=== PATIENT | female | born 1935 | race Caucasian/White ===

== ENCOUNTER 2024-08-04 15:10 | Inpatient (IN) | payer MEDICARE, SELFPAY ==
--- NOTE | 2024-08-04 15:23 | HP.PCM_ITS ---
HPI - General General Date of Admission: 08/04/24 Date of Service: 08/04/24 Chief Complaint: Here for rehabilitation. HPI Narrative STEPHANY DANG, is a 88 Female who presents with followin07/28/2024 Admit to [facility] with fall, left hip pain, near syncope. Fall, pelvic fracture, near syncope. Fall in bathroom, left hip, left leg pain, unable to bear weight. In ED, near syncope when trying to stand. Gentle IV fluids, check orthostatics for near syncope. PT/OT for pelvic fracture. Lovenox for DVT prophylaxis. 07/30/2023 EP consulted for syncope. Patient adamantly denies syncope. Echo EF 76%, moderate bioprosthetic aortic valve stenosis. Follow bioprosthetic aortic valve stenosis as outpatient. 08/01/2024 No acute events overnight. Ortho recommended no surgery for pelvic fracture. WBAT. PT/OT recommends inpatient rehabilitation. 08/04/2024 Admit to TCU with debility, here for rehabilitation, strengthening, prior to discharge home alone. [facility] Medical History (Updated 08/04/24 @ 15:[address] Ruperto Damon MD) Hyperlipidemia, unspecified Essential (primary) hypertension Type 2 diabetes mellitus with hyperglycemia Bilateral carotid artery stenosis Coronary artery disease Aortic stenosis Osteoarthritis Atrial fibrillation Pelvic fracture Syncope Debility Home Medications ?Medication ?Instructions ?Recorded ?Last Taken ?Type amlodipine 10 mg tablet 10 mg PO DAILY BP 08/04/24 Unknown History aspirin 81 mg capsule 81 mg PO DAILY blood thinner 08/04/24 Unknown History atorvastatin 40 mg tablet 40 mg PO DAILY cholesterol 08/04/24 Unknown History baclofen 5 mg tablet 5 mg PO TID muscle spasms 08/04/24 Unknown History calcium 500 mg (as 1 tab PO DAILY supplement 08/04/24 Unknown History carbonate)-vitamin D3 5 mcg (200 unit) tablet ezetimibe 10 mg tablet 10 mg PO DAILY cholesterol 08/04/24 Unknown History metformin 500 mg tablet 500 mg PO DAILY blood sugar 08/04/24 Unknown History metoprolol tartrate 25 mg tablet 25 mg PO BID BP/pulse 08/04/24 Unknown History oxycodone 5 mg tablet 2.5 mg PO Q4H PRN pain 08/04/24 Unknown History Allergy/AdvReac Type Severity Reaction Status Date / Time No Known Allergies Allergy Verified 08/04/24 16:09 Family History (Updated 08/04/24 @ 15:[address] Ruperto Damon MD) Father CAD (coronary artery disease) Mother CAD (coronary artery disease) Surgical History (Updated 08/04/24 @ 15:[address] Ruperto Damon MD) History of colon surgery History of right-sided carotid endarterectomy History of left-sided carotid endarterectomy History of aortic valve replacement with bioprosthetic valve History of coronary artery bypass graft x 2 Social History (Updated 08/04/24 @ 15:[address] Ruperto Damon MD) household members: none Smoking Status: Never smoker alcohol intake: never substance use type: does not use ROS Constitutional Constitutional: Reports weakness; Denies chills, fever(s) or weight gain ENT HEENT: Denies headache(s), nasal congestion or nasal discharge Cardiovascular Cardiovascular: Denies chest pain or palpitations Respiratory/Chest Respiratory/Chest: Denies cough, excessive phlegm production or shortness of breath with exertion Gastrointestinal Gastrointestinal: Denies abdominal pain, nausea or vomiting Genitourinary Genitourinary: Denies dysuria Musculoskeletal Musculoskeletal: Denies joint pain or joint swelling Integumentary Integumentary: Denies rash or wounds Neurologic Neurologic: Denies focal weakness, numbness or tingling Psychiatric Psychiatric: Denies anxiety, auditory hallucinations, depression, homicidal ideation or suicidal ideation Physical Exam Const alert General Appearance: cooperative HEENT normocephalic Eyes PERRL and EOMs intact bilaterally Neck supple, no JVD and no carotid bruits Resp normal respiratory effort, normal air movement and clear to auscultation bilaterally Cardio regular rate and regular rhythm GI normal to inspection, nondistended, normoactive bowel sounds, non-tender and non-distended Extremity normal capillary refill General Extremity: Negative for edema Skin no rashes or lesions noted General Skin Exam: no breakdown Psych affect normal Appearance: appropriate Assessment & Plan Assessment/Plan (1) Debility: (2) Syncope: (3) Pelvic fracture: (4) Atrial fibrillation: (5) Osteoarthritis: (6) Aortic stenosis: (7) Coronary artery disease: (8) Bilateral carotid artery stenosis: (9) Type 2 diabetes mellitus with hyperglycemia: (10) Essential (primary) hypertension: (11) Hyperlipidemia, unspecified: PLAN: Plan 88 year old female with below past medical history hospitalized for fall 2/2 syncope, complicated by pelvis fracture, admitted to TCU with debility, here for rehabilitation, strengthening, prior to discharge home alone. * Debility - PT/OT. * Pain - Tylenol 1000mg q8, Tramadol 50mg q6 prn pain (1-5), Oxycodone 2.5mg q4 prn pain (6-10). * Bowel - senna/colace 1 tablet bid, Magnesium citrate 300mL daily prn. * Adult immunization - Administer pneumonia vaccine, covid vaccine, flu vaccine as appropriate. * DVT prophylaxis - Lovenox 30mg sc daily. * Hypertension - Metoprolol 25mg bid, Amlodipine 10mg daily. * Coronary artery disease - Metoprolol 25mg bid, Aspirin 81mg daily. * Hyperlipidemia - Atorvastatin 40mg qhs, Zetia 10mg daily. * Muscle spasm - Baclofen 5mg po tid. * Calcium deficiency - Calcium D 1 tablet daily. * Diabetes Mellitus II - Metformin 500mg daily. * Atrial fibrillation - Metoprolol 25mg bid, Aspirin 81mg daily, not on anticoagulation, resident sees cardiology in [place].
[2024-08-04 15:24] VITALS: BP 159/70; PULSE 79; RESP 16; RESP 18; TEMP 36.2; O2SAT 94; BMI 22.2
[2024-08-04] MEDS: Acetaminophen 500 MG Tablet 1000 MG PO ×2 (17:16→20:02)
[2024-08-04] MEDS: Senna/Docusate Sodium 1 Tablet PO ×2 (17:16→20:04)
[2024-08-04] MEDS: Baclofen 10 MG Tablet 5 MG PO (20:02)
[2024-08-04 20:03] VITALS: BP 110/49; PULSE 57
[2024-08-04] MEDS: Metoprolol Tartrate 25 MG Tablet PO (20:03)
[2024-08-04] MEDS: Atorvastatin Calcium 40 MG Tablet PO (20:04)
--- NOTE | 2024-08-05 01:29 | NURSING ---
While doing rounds, noted patient had gown pulled up. REFINERY OPERATOR CRUDE UNIT entered room with me, and it was noted that patient had pulled brief off, had a BM and wiped it on herself. Patient washed, night gown and linen changed. Will continue to monitor.
[2024-08-05] MEDS: Baclofen 10 MG Tablet 5 MG PO ×2 (05:47→20:51)
[2024-08-05] MEDS: Acetaminophen 500 MG Tablet 1000 MG PO ×2 (05:47→20:51)
[2024-08-05 06:20] LABS: Bedside Glucose 122 mg/dL (74-106)
[2024-08-05 07:30] LABS: Absolute Lymphocyte Count 1.09 X10^3/uL (0.83-4.51); Basophil# 0.03 X10^3/uL; Basophil% 0.5 % (0-1); Eosinophil# 0.18 X10^3/uL; Hematocrit 33.9 % (37-47); Hemoglobin 10.9 g/dL (12.0-15.0); Lymphocyte # 1.09 X10^3/ul (0.83-4.51); Lymphocyte % 18.4 % (19-41); Mean Corp Hgb Conc 32.2 g/dL (32-36); Mean Corpuscular Hgb 30.4 pg (27.0-32.0); Mean Corpuscular Volume 94.7 fL (81-99); Mean Platelet Vol. 11.3 fl (6.2-12.0); Monocyte% 10.1 % (0-10); NRBC Flagged by Analyzer 0 % (0-5); Neutrophil # 4.02 X10^3/uL (2.7-7.7); Neutrophil % 67.7 % (47-70); Platelet Count 173 K/mm3 (150-450); RBC Distribution Width CV 13.9 % (11.6-14.6); RBC Distribution Width SD 47.9 fl (35.1-43.9); Red Blood Count 3.58 M/mm3 (4.2-5.4); White Blood Count 5.9 K/mm3 (4.4-11.0)
[2024-08-05 07:48] LABS: Anion Gap 6 (5-15); BUN 26 mg/dL (7-18); Chloride 106 mmol/L (98-107); Creatinine, Serum 0.93 mg/dL (0.55-1.02); EST Glomerular Filtration Rate 60 mL/min (>60); Est Glom Filt Rate - Afr Amer 73 mL/min (>60); Estimated Creatinine Clearance 30.03 ml/min; Glucose 135 mg/dL (74-106); Potassium 4.1 mmol/L (3.5-5.1); Sodium Level 138 mmol/L (136-145)
[2024-08-05 08:25] VITALS: BP 134/65; PULSE 63; RESP 16; TEMP 36.4; O2SAT 97
[2024-08-05 09:07] VITALS: PULSE 62
[2024-08-05] MEDS: Senna/Docusate Sodium 1 Tablet PO ×2 (09:07→20:51)
[2024-08-05] MEDS: Metoprolol Tartrate 25 MG Tablet PO ×2 (09:07→20:52)
[2024-08-05] MEDS: metFORMIN HCl 500 MG Tablet PO (09:08)
[2024-08-05] MEDS: Aspirin 81 MG TAB.CHEW PO (09:08)
[2024-08-05] MEDS: Calcium Carb/Vitamin D 1 TABLET Tablet PO (09:08)
[2024-08-05] MEDS: amLODIPine 10 MG Tablet PO (09:08)
[2024-08-05] MEDS: Ezetimibe 10 MG Tablet PO (09:09)
[2024-08-05] MEDS: Enoxaparin 30 MG/0.3 ML Syringe SC (10:10)
[2024-08-05] MEDS: Tuberculin,Purif.prot.deriv. 50 TU/ML Vial 0.1 ML ID (10:15)
[2024-08-05] MEDS: Atorvastatin Calcium 40 MG Tablet PO (20:50)
[2024-08-05 20:52] VITALS: BP 122/52; PULSE 68
[2024-08-05 20:55] VITALS: BP 122/52; PULSE 68; O2SAT 95
[2024-08-05 20:56] VITALS: PULSE 86; RESP 16; O2SAT 95
[2024-08-06 05:15] VITALS: RESP 17
[2024-08-06] MEDS: Enoxaparin 30 MG/0.3 ML Syringe SC (05:17)
[2024-08-06] MEDS: Baclofen 10 MG Tablet 5 MG PO (05:17)
[2024-08-06] MEDS: Acetaminophen 500 MG Tablet 1000 MG PO ×3 (05:17→23:13)
[2024-08-06 06:23] LABS: Bedside Glucose 103 mg/dL (74-106)
[2024-08-06 08:26] VITALS: BP 116/66; PULSE 70; RESP 16; TEMP 36.5; O2SAT 96
[2024-08-06] MEDS: metFORMIN HCl 500 MG Tablet PO (08:29)
[2024-08-06] MEDS: Aspirin 81 MG TAB.CHEW PO (08:29)
[2024-08-06 08:30] VITALS: PULSE 70
[2024-08-06] MEDS: Metoprolol Tartrate 25 MG Tablet PO ×2 (08:30→23:12)
[2024-08-06] MEDS: Senna/Docusate Sodium 1 Tablet PO (08:30)
[2024-08-06] MEDS: amLODIPine 10 MG Tablet PO (08:30)
[2024-08-06] MEDS: Calcium Carb/Vitamin D 1 TABLET Tablet PO (08:30)
[2024-08-06] MEDS: Ezetimibe 10 MG Tablet PO (08:31)
[2024-08-06 23:12] VITALS: BP 116/56; PULSE 60
[2024-08-06] MEDS: Atorvastatin Calcium 40 MG Tablet PO (23:13)
[2024-08-06] MEDS: Menthol/Lanolin/Calamine/Znox 113 GM Tube 1 APPLIC TOPICAL (23:17)
[2024-08-06 23:18] VITALS: BP 116/56; PULSE 60
[2024-08-07] MEDS: Acetaminophen 500 MG Tablet 1000 MG PO ×3 (05:47→22:23)
[2024-08-07] MEDS: Enoxaparin 30 MG/0.3 ML Syringe SC (05:47)
[2024-08-07 06:14] LABS: Bedside Glucose 101 mg/dL (74-106)
[2024-08-07 08:28] VITALS: BP 120/63; PULSE 82; RESP 16; TEMP 36.6; O2SAT 96
[2024-08-07] MEDS: amLODIPine 10 MG Tablet PO (08:32)
[2024-08-07] MEDS: Ezetimibe 10 MG Tablet PO (08:32)
[2024-08-07] MEDS: Calcium Carb/Vitamin D 1 TABLET Tablet PO (08:32)
[2024-08-07 08:33] VITALS: BP 120/63; PULSE 82
[2024-08-07] MEDS: Metoprolol Tartrate 25 MG Tablet PO ×2 (08:33→22:23)
[2024-08-07] MEDS: metFORMIN HCl 500 MG Tablet PO (08:33)
[2024-08-07] MEDS: Aspirin 81 MG TAB.CHEW PO (08:33)
[2024-08-07] MEDS: Menthol/Lanolin/Calamine/Znox 113 GM Tube 1 APPLIC TOPICAL ×2 (08:36→22:24)
--- NOTE | 2024-08-07 12:41 | NURSING ---
Rehabilitation Team Lead Note; Activity Asset: Karyn Smith is independent in her choice of daily activities. She has crossword puzzles, deck of cards and sister and friend visits with her. She welcomes visits from the therapy dog when she is available. Staff will encourage social activities, take her room activities and respect her right to say no.
--- NOTE | 2024-08-07 14:11 | PCM.PN.DRR ---
Documented by User: Raquel Maurer 08/07/24 14:28 TCU RX Drug Regimen Review Subjective/Objective Subjective/Objective Subjective: TCU Admission. 88 YOF presented to outside hospital with hip pain after a fall. Hospitalized for fall 2/2 syncope, complicated by pelvis fracture. Admitted to TCU with debility for strengthening and rehabilitation. Objective: Allergies No Known Allergies Allergy (Verified 08/04/24 16:09) Current Medications Generic Name Dose Route Start Last Admin Trade Name Freq PRN Reason Stop Dose Admin Acetaminophen 1,000 mg 08/04/24 16:00 08/07/24 14:02 Acetaminophen 500 Mg Tablet PO 1,000 mg Q8 BRUNO Administration Amlodipine Besylate 10 mg 08/05/24 10:00 08/07/24 08:32 Amlodipine 10 Mg Tablet PO 10 mg DAILY BRUNO Administration Protocol Aspirin 81 mg 08/05/24 08:00 08/07/24 08:33 Aspirin 81 Mg Tab.Chew PO 81 mg DAILYCM BRUNO Administration Atorvastatin Calcium 40 mg 08/04/24 22:00 08/06/24 23:13 Atorvastatin Calcium 40 Mg Tablet PO 40 mg QHS BRUNO Administration Baclofen 5 mg 08/04/24 22:00 08/07/24 14:02 Baclofen 10 Mg Tablet PO Not Given TID [facility] Bisacodyl 10 mg 08/04/24 15:36 Bisacodyl 10 Mg Suppository RC DAILY PRN PRN Constipation COVID-19 Vaccine mRNA LNP-S (MOD) (PF) 50 mcg 08/07/24 17:00 Covid Vac 24-25 (12up)(Moderna)/Pf 50 Mcg/0.5 Ml Syringe IM 08/07/24 17:01 .ONCE ONE Calamine/Phenol 1 applic 08/06/24 22:00 08/07/24 08:36 Menthol/Lanolin/Calamine/Znox 113 Gm Tube TOPICAL 1 applic BID [facility] Administration Protocol Calcium/Vitamin D 1 tablet 08/05/24 08:00 08/07/24 08:32 Calcium Carb/Vitamin D 1 Tablet Tablet PO 1 tablet DAILYCM BRUNO Administration Ezetimibe 10 mg 08/05/24 10:00 08/07/24 08:32 Ezetimibe 10 Mg Tablet PO 10 mg DAILY BRUNO Administration Enoxaparin Sodium 30 mg 08/05/24 06:00 08/07/24 05:47 Enoxaparin 30 Mg/0.3 Ml Syringe SC 30 mg DAILY@0600 [facility] Administration Magnesium Citrate 300 ml 08/04/24 15:47 Magnesium Citrate 300 Ml PO DAILY PRN Constipation Magnesium Hydroxide 30 ml 08/04/24 15:36 Magnesium Hydroxide 30 Ml Udc PO DAILY PRN PRN Constipation Metformin HCl 500 mg 08/05/24 08:00 08/07/24 08:33 Metformin Hcl 500 Mg Tablet PO 500 mg DAILYCM BRUNO Administration Metoprolol Tartrate 25 mg 08/04/24 22:00 08/07/24 08:33 Metoprolol Tartrate 25 Mg Tablet PO 25 mg BID BRUNO Administration Protocol Oxycodone HCl 2.5 mg 08/04/24 15:50 Oxycodone 5 Mg Tablet PO Q4H PRN PRN Pain Score 6-10 or Pre PT/OT Senna/Docusate Sodium 1 tablet 08/04/24 16:00 08/07/24 08:35 Senna/Docusate Sodium 1 Tablet PO Not Given BID [facility] Tramadol HCl 50 mg 08/04/24 15:47 Tramadol 50 Mg Tablet PO Q6H PRN PRN Pain Score 1-5 or Pre PT/OT Tuberculin PPD 0.1 ml 08/12/24 10:00 Tuberculin,Purif.Prot.Deriv. 50 Tu/Ml Vial ID 08/12/24 10:01 X1 ONE Problem List Hyperlipidemia, unspecified (Acute) Essential (primary) hypertension (Acute) Type 2 diabetes mellitus with hyperglycemia (Acute) Bilateral carotid artery stenosis (Acute) Coronary artery disease (Acute) Aortic stenosis (Acute) Osteoarthritis (Acute) Atrial fibrillation (Acute) Pelvic fracture (Acute) Syncope (Acute) Debility (Acute) Vital Signs Temp Pulse Resp BP Pulse Ox O2 Del Method 97.8 F 82 16 120/63 96 Room Air 08/07/24 08:28 08/07/24 08:33 08/07/24 08:28 08/07/24 08:33 08/07/24 08:28 08/07/24 08:28 Oxygen Delivery Method Room Air Weight: 50.009 kg Body Mass Index (BMI) 22.2 Sodium 138 mmol/L (136-145) 08/05/24 07:10 Potassium 4.1 mmol/L (3.5-5.1) 08/05/24 07:10 Chloride 106 mmol/L (98-107) 08/05/24 07:10 Carbon Dioxide 26.0 mmol/L (21.0-32.0) 08/05/24 07:10 Anion Gap 6 (5-15) 08/05/24 07:10 BUN 26 mg/dL (7-18) H 08/05/24 07:10 Creatinine 0.93 mg/dL (0.55-1.02) 08/05/24 07:10 Est GFR (MDRD) Af Amer 73 mL/min (>60) 08/05/24 07:10 Est GFR (MDRD) Non-Af 60 mL/min (>60) 08/05/24 07:10 BUN/Creatinine Ratio 28.0 RATIO (10-20) H 08/05/24 07:10 Glucose 135 mg/dL (74-106) H 08/05/24 07:10 Assessment/Plan: 1. Pain: acetaminophen 1000mg PO Q8, tramadol 50mg PO Q6H PRN pain 1-5 and oxycodone 2.5mg PO Q4H PRN pain 6-10. Resident has not had any PRN doses. Please continue to monitor for PRN usage and pain. 2. Bowel: senna/docusate 1T PO BID, MOM 30mL PO daily PRN constipation, bisacodyl 10mg RC daily PRN constipation and magnesium citrate 300mg PO daily PRN constipation. No PRN doses given. Please continue to monitor for constipation and PRN usage. Last documented bowel movement 08/06/24. 3. DVT prophylaxis: enoxaparin 30mg SC daily. Please continue to monitor for S/S of bleeding/DVT, hemoglobin (10.9g/dL), platelets (last 173,000) and renal function (CrCl 30mL/min). 4. Hypertension/CAD/atrial fibrillation: metoprolol tartrate 25mg PO BID, amlodipine 10mg PO daily, aspirin 81mg PO daily. Please continue to monitor BP (last 120/63), HR (last 82), swelling, S/S of bleeding/stroke and hemoglobin. Per H&P, not on anticoagulation, sees cardiology in [place]. 5. Hyperlipidemia: atorvastatin 40mg PO QHS and ezetimibe 10mg PO daily. Please consider ordering a lipid panel as there is no panel in the chart. Thanks. Please continue to monitor for muscle pain. 6. Diabetes mellitus II: metformin 500mg PO daily. Please consider ordering a hemoglobin A1c as there is no level in the chart. Thanks. Please continue to monitor glucose (last 101mg/dL), renal function, diarrhea and S/S of hypoglycemia. 7. Muscle spasms: baclofen 5mg PO TID. Please continue to monitor for hypotonia, dizziness and drowsiness. 8. Calcium deficiency: calcium/vitamin D 1T PO DAILYCM. Please consider ordering a vitamin D level as there is no level in the chart. Thanks. Please continue to monitor calcium (last 9mg/dL). Assessment/Plan for indications treated with psychotropic medications: None Medical chart and medication regimen reviewed. The following medication irregularities or issues were identified: 1. Atorvastatin 40mg PO QHS and ezetimibe 10mg PO daily. Please consider ordering a lipid panel as there is no panel in the chart. Thanks. 2. Metformin 500mg PO daily. Please consider ordering a hemoglobin A1c as there is no level in the chart. Thanks. 3. Calcium/vitamin D 1T PO DAILYCM. Please consider ordering a vitamin D level as there is no level in the chart. Thanks. Date Date of Note: 08/07/24 Documented by User: Dr. Ruperto Damon MD 08/07/24 15:46 TCU RX Drug Regimen Review Provider Comments Provider responsibility Provider Comments to Recommendations by Pharmacy Agree
--- NOTE | 2024-08-07 15:33 | CASEMGMT ---
Social Work SW met with pt and introduced self and role of SW. Initial assessment completed, contacts verified. Pt confirmed code status as full code. SW educated pt to [facility] benefit and that NRD is 08/[address]. SW explained that continued stay is not guaranteed. Pt lives in a one level condo alone and has been independent with ADLS. Pt's sister assists with finances, medication set up and transportation. Pt plans to return home at time of dc. SW will follow for dc planning. LAYO Younger
[2024-08-07 19:50] VITALS: PULSE 73; O2SAT 96
[2024-08-07 21:15] VITALS: BP 111/50; PULSE 73
[2024-08-07 22:23] VITALS: BP 111/50; PULSE 73
[2024-08-07] MEDS: Atorvastatin Calcium 40 MG Tablet PO (22:23)
--- NOTE | 2024-08-07 22:25 | NURSING ---
Pt requesting covid vaccination be in AM rather than right before bed. Denies any further needs at this time.
[2024-08-08] MEDS: Enoxaparin 30 MG/0.3 ML Syringe SC (05:17)
[2024-08-08] MEDS: Baclofen 10 MG Tablet 5 MG PO ×3 (05:17→21:16)
[2024-08-08] MEDS: Acetaminophen 500 MG Tablet 1000 MG PO ×3 (05:17→21:17)
[2024-08-08 05:30] VITALS: PULSE 81; O2SAT 97
[2024-08-08 06:13] LABS: Bedside Glucose 113 mg/dL (74-106)
[2024-08-08 06:31] LABS: Cholesterol 72 mg/dL (200); High Density Lipoprotein 32 mg/dL; Triglycerides 104 mg/dL; Very Low Density Lipoprotein 21 mg/dL (5-40)
[2024-08-08 08:41] VITALS: BP 112/51; PULSE 74; RESP 17; TEMP 36.2; O2SAT 99
[2024-08-08] MEDS: amLODIPine 10 MG Tablet PO ×2 (08:41)
[2024-08-08] MEDS: Metoprolol Tartrate 25 MG Tablet PO ×2 (08:41→21:16)
[2024-08-08] MEDS: Calcium Carb/Vitamin D 1 TABLET Tablet PO (08:41)
[2024-08-08] MEDS: Ezetimibe 10 MG Tablet PO (08:41)
[2024-08-08] MEDS: Aspirin 81 MG TAB.CHEW PO (08:41)
[2024-08-08] MEDS: Menthol/Lanolin/Calamine/Znox 113 GM Tube 1 APPLIC TOPICAL ×2 (08:42→21:18)
[2024-08-08] MEDS: metFORMIN HCl 500 MG Tablet PO (08:42)
[2024-08-08 09:31] LABS: Hemoglobin A1c 5.8 % (3.8-5.6)
[2024-08-08 14:36] VITALS: BMI 21.9
--- NOTE | 2024-08-08 17:53 | NURSING ---
pt displacing increased confusion and becoming combative. Insisting on leaving. Dr Damon made aware. New orders received. pt at nurses station being closely monitored. Refusing meal or drink.
[2024-08-08] MEDS: LORazepam 0.5 MG Tablet PO (18:05)
[2024-08-08 18:15] LABS: Basophil# 0.08 X10^3/uL; Basophil% 1.1 % (0-1); Eosinophil# 0.24 X10^3/uL; Eosinophils% 3.4 % (0-5); Hematocrit 34.7 % (37-47); Hemoglobin 11.1 g/dL (12.0-15.0); Lymphocyte % 29.9 % (19-41); Mean Corpuscular Hgb 30.4 pg (27.0-32.0); Mean Corpuscular Volume 95.1 fL (81-99); Mean Platelet Vol. 11.8 fl (6.2-12.0); Monocyte# 0.63 X10^3/uL; NRBC Flagged by Analyzer 0 % (0-5); Neutrophil # 3.95 X10^3/uL (2.7-7.7); Neutrophil % 56.3 % (47-70); Platelet Count 220 K/mm3 (150-450); RBC Distribution Width CV 14.2 % (11.6-14.6); RBC Distribution Width SD 49.1 fl (35.1-43.9); Red Blood Count 3.65 M/mm3 (4.2-5.4)
[2024-08-08 18:20] LABS: Anion Gap 7 (5-15); BUN 27 mg/dL (7-18); BUN/Creat Ratio 24.8 RATIO (10-20); Calcium,Total 9.2 mg/dL (8.5-10.1); Chloride 105 mmol/L (98-107); Creatinine, Serum 1.09 mg/dL (0.55-1.02); EST Glomerular Filtration Rate 50 mL/min (>60); Est Glom Filt Rate - Afr Amer 61 mL/min (>60); Estimated Creatinine Clearance 25.63 ml/min; Glucose 102 mg/dL (74-106); Potassium 4.4 mmol/L (3.5-5.1); Sodium Level 139 mmol/L (136-145)
[2024-08-08] MEDS: Atorvastatin Calcium 40 MG Tablet PO (21:15)
[2024-08-08 21:16] VITALS: BP 113/59; PULSE 81
[2024-08-08 23:24] LABS: Bacteria 0 SEEN /hpf (None Seen); Mucous, Urine 0 SEEN /hpf (<or=2+); Red Blood Cells-Urine 0 SEEN /hpf (0-5); Squamous Epithelial Cells - UA 0 SEEN /hpf (5-10); White Blood Cells 0 SEEN /hpf (0-5)
[2024-08-08 23:31] LABS: Color, Urine Yellow (Yellow); Glucose, Dipstick Normal (Normal); Ketone-Dipstick Negative (Negative); Leukocyte Esterase-Dipstick Negative /ul (Negative); Nitrite-Dipstick Negative (Negative); Occult Blood-Urine Negative /ul (Negative); Protein-Dipstick 15 mg/dl (Negative); Specific Gravity, Urine 1.015 (1.002-1.030); Urine Bilirubin Dipstick Negative (Negative); Urine Clarity Clear (Clear); Urine Urobilinogen Normal (Normal)
[2024-08-09] VITALS (8 sets, daily range): BP systolic 84–113; BP diastolic 40–49; PULSE 60–77; RESP 16; TEMP 36.7; O2SAT 94
--- NOTE | 2024-08-09 03:41 | NURSING ---
Addendum entered by Brian Clement 08/09/24 03:45: Reviewed vaccination record, noted that patient has not had Covid booster since 2020 according to the records in our system. Original Note: Talked with patient regarding getting the Covid Vaccine, stated she wanted to wait and make sure she has not had one recently.
[2024-08-09 06:25] LABS: Bedside Glucose 88 mg/dL (74-106)
[2024-08-09] MEDS: Enoxaparin 30 MG/0.3 ML Syringe SC (06:33)
[2024-08-09] MEDS: Baclofen 10 MG Tablet 5 MG PO ×2 (06:33→13:28)
[2024-08-09] MEDS: Acetaminophen 500 MG Tablet 1000 MG PO ×3 (06:33→20:09)
[2024-08-09] MEDS: Aspirin 81 MG TAB.CHEW PO (08:30)
[2024-08-09] MEDS: Calcium Carb/Vitamin D 1 TABLET Tablet PO (08:31)
[2024-08-09] MEDS: metFORMIN HCl 500 MG Tablet PO (08:31)
[2024-08-09] MEDS: Menthol/Lanolin/Calamine/Znox 113 GM Tube 1 APPLIC TOPICAL ×2 (08:31→20:10)
[2024-08-09] MEDS: Ezetimibe 10 MG Tablet PO (08:31)
--- NOTE | 2024-08-09 09:30 | NURSING ---
pt BP low, lethargy noted as well this AM. Dr Damon notified, new order for IV bolus 500cc x1. lopressor held.
[2024-08-09] MEDS: 0.9% Normal Saline (500mL Bag) 500 ML 999 ML IV (10:42)
[2024-08-09] MEDS: 0.9% Saline Lock 10 ML Syringe IV ×2 (10:46→20:59)
--- NOTE | 2024-08-09 10:53 | NURSING ---
Addendum entered by Juliana Clemons 08/09/24 18:09: dr puri ordered celexa. Original Note: speech therapist reported that pt dropped hot coffee on her lap, RT upper thigh reddened, blistering. cool compress placed. will continue to monitor. pt sister here and concerned about pt being depressed, when sister entered room pt began crying and hugging sister. pt states I am fine now you are here pt smiled. sister states I don't know how to deal with her this way message left with dr puri and spoke to social services specialist before her plan of care meeting.
--- NOTE | 2024-08-09 11:41 | CASEMGMT ---
Plan of care meeting held with pt and pt's sister and brother in law present. Therapy/oyster grader/activities updated on pt progress. SW updated to [employer] [facility] benefit and that NRD is 08/10 and that [employer] recommended dc plans be in place at that time. Pt's family and IDT are in agreement that pt is not ready for discharge at this time. SW provided family written communication on insurance process and copay coverage during stay. Pt lives at home alone and will need to be independent with return home. Pt sister lives 15 minutes away, but is able to check on pt most days. Sister is not there to provide 24 hour care. SW did stress that if insurance does issue last covered day, an alternative plan needs to be in place. Pt sister states that she has spoke with [employer] and pt does not qualify for Medicaid. Sister also states she has inquired at the [facility]. SW met with pt sister after POC meeting. Pt sister is realistic that pt cannot return home. Discussed discharged options and including ECF and assisted living. Per sister, pt does not have resources to pay for LTC. TOM explained that pt may qualify for LTC medicaid and this will pay for ECF but not assisted living. SW also discussed the [place] program. Sister states that she has placed pt's name on the waiting list at the [facility]. A list of SNF providers given to pt from the [facility] guide. Pt's sister states she has applied for Medicaid through [facility]. SW to send referral to [facility]. Sister to review list and cosider other options. SW to continue to follow. LAYO Younger
--- NOTE | 2024-08-09 16:34 | CASEMGMT ---
Social Work SW sent referral to [facility] via [facility]. Will await determination of acceptance. LAYO Younger
--- NOTE | 2024-08-09 16:52 | NURSING ---
Addendum entered by Juliana Clemons 08/09/24 18:08: dr puri ordered silvadene BID to rt upper thigh burn. Original Note: pt rt upper thigh noted to start blistering, raised blister approx 1/2 dollar size. cool compress applied. message left for dr puri
--- NOTE | 2024-08-09 18:25 | NURSING ---
while checking on pt during supper, noted pt having difficulty holding items in hands, drops things easily. noted she had spilled coffee on her meal tray, placed lid back on coffee for pt to prevent spilling again, pt made this nurse remove lid. stated if you put that off, then I can't take it off pt was not making sense. asked her to repeat her sentence and she repeated the same thing, instead of saying ON, she was saying off. Encouraged pt to leave lid on but she refused.
[2024-08-09] MEDS: Atorvastatin Calcium 40 MG Tablet PO (20:09)
[2024-08-09] MEDS: Silver Sulfadiazine 1% Crm 50 gm Bottle 1 APPLIC TOPICAL (20:09)
--- NOTE | 2024-08-09 20:46 | NURSING ---
Patient's blood pressure low this evening, 92/48 sitting in chair, HR 62. Patient ate very little of dinner, less than 25%. Patient's oral intake inadequate, needs cued to drink fluids. Patient very tired, falling asleep during dinner per dayshift. Consulted Dr. Damon via telephone, new order for Continuous 0.9% NS running at 75cc/hr, stop after administration of [address] Damon, OK to hold BRUNO lopressor at . Telephone orders read back and verified. Consulted pharmacy to help override order d/t IV shortage, they entered order.
[2024-08-09] MEDS: 0.9% Normal Saline (1000mL) 1,000 ML 75 ML IV (20:59)
[2024-08-10] MEDS: Enoxaparin 30 MG/0.3 ML Syringe SC (05:35)
[2024-08-10] MEDS: Acetaminophen 500 MG Tablet 1000 MG PO ×3 (05:35→20:13)
[2024-08-10 06:23] LABS: Bedside Glucose 109 mg/dL (74-106)
--- NOTE | 2024-08-10 08:41 | NURSING ---
dietary notified to send up sippy cups with all meals for pt. pt 1:1 at this time with brkfst to monitor how well she is eating & drinking fluids. IVF infusing at this time. dr puri notified of pts hand jerks which causing her to drop items. new order to DC baclofen.
[2024-08-10 08:56] VITALS: BP 98/44; PULSE 80; RESP 16; TEMP 36.6; O2SAT 97
[2024-08-10 09:00] VITALS: BP 98/44; PULSE 80
[2024-08-10] MEDS: Ezetimibe 10 MG Tablet PO (09:01)
[2024-08-10] MEDS: Silver Sulfadiazine 1% Crm 50 gm Bottle 1 APPLIC TOPICAL ×2 (09:01→17:30)
[2024-08-10] MEDS: Calcium Carb/Vitamin D 1 TABLET Tablet PO (09:02)
[2024-08-10] MEDS: metFORMIN HCl 500 MG Tablet PO (09:02)
[2024-08-10] MEDS: Citalopram 10 MG Tablet PO (09:02)
[2024-08-10] MEDS: Menthol/Lanolin/Calamine/Znox 113 GM Tube 1 APPLIC TOPICAL ×2 (09:02→20:24)
[2024-08-10] MEDS: Aspirin 81 MG TAB.CHEW PO (09:02)
--- NOTE | 2024-08-10 09:18 | NURSING ---
silvadene applied to RT upper thigh, blister to area. pt denies pain at site. pt sitting up in chair. BP low, dr puri notified ok ot hold lopressor and norvasc.
[2024-08-10] MEDS: 0.9% Normal Saline (1000mL) 1,000 ML 75 ML IV (10:27)
--- NOTE | 2024-08-10 10:38 | MDS.RN ---
Pain assessment for MDS compete.
[2024-08-10 10:49] VITALS: PULSE 79; RESP 16; O2SAT 96
--- NOTE | 2024-08-10 10:53 | CASEMGMT ---
Social Work VM left with pt Shipping Specialist at [facility]. Will await return call. Message sent to [facility] to check on status of referral. Will await response. LAYO Younger
--- NOTE | 2024-08-10 10:58 | NURSING ---
pt awake and alert this AM, pleasant, talking to sister Ruth on phone at this time. denies needs or c/o.
[2024-08-10 11:00] VITALS: BP 101/44; PULSE 75
--- NOTE | 2024-08-10 13:58 | NURSING ---
message left for Bess, wound nurse to assess RT upper thigh burn.
--- NOTE | 2024-08-10 16:29 | CASEMGMT ---
Social Work Insurance issued NRD of 08/16/24 with dc plans in placed. SW spoke with [facility] and no beds available at this time. Phone call to pt sister Ruth and updated on insurance extension and that NRD is 08/16 with first possible dc date 08/19. SW also updated that [facility] does not have available beds at this time. Ruth and Ruth's strongly expressing desire to be well enough to return home at discharge. SW explained team concerns about pt returning home alone due to cognitive and functional limitations. Family stating that [facility] is only choice of SNF. SW explained that no rooms are available. SW requested they make second choice of SNF and Ruth states she has been looking all day and cannot find a suitable second choice. SW encouraged Ruth to continue to look and that a second choice would be needed. SW did inform [facility] that soonest DC date would be 08/19 and requested they consider pt for admission if they have a discharge. Ruth states she is completing paperwork for the Medicaid process. No return call from Sharon at this time. SW to continue to follow for dc planning. LAYO Younger
--- NOTE | 2024-08-10 17:35 | NURSING ---
RT upper thigh blister opened while pt getting pants pulled up, mod amt of fluid hit floor. pt denies pain. area cleansed, applied silvadene and placed LG mepilex to area until seen by wound nurse.
--- NOTE | 2024-08-10 17:37 | NURSING ---
dr puri notified of pt pedal edema since being on IVF, ok to DC. pt eating & drinking and mental status much improved today.
[2024-08-10 20:13] VITALS: BP 117/47; PULSE 77
[2024-08-10] MEDS: Atorvastatin Calcium 40 MG Tablet PO (20:13)
[2024-08-10] MEDS: Senna/Docusate Sodium 1 Tablet PO (20:13)
[2024-08-10] MEDS: Metoprolol Tartrate 25 MG Tablet PO (20:13)
[2024-08-10 20:25] VITALS: BP 117/47; PULSE 77
[2024-08-11] MEDS: Enoxaparin 30 MG/0.3 ML Syringe SC (05:20)
[2024-08-11] MEDS: Acetaminophen 500 MG Tablet 1000 MG PO ×2 (05:20→21:20)
[2024-08-11 05:33] VITALS: RESP 16
[2024-08-11 05:45] LABS: Absolute Lymphocyte Count 1.75 X10^3/uL (0.83-4.51); Absolute Neutrophil Count 5.4 X10^3/uL (2.0-7.7); Basophil# 0.06 X10^3/uL; Basophil% 0.7 % (0-1); Eosinophil# 0.27 X10^3/uL; Eosinophils% 3.3 % (0-5); Hematocrit 30.4 % (37-47); Hemoglobin 9.4 g/dL (12.0-15.0); Lymphocyte # 1.75 X10^3/ul (0.83-4.51); Lymphocyte % 21.3 % (19-41); Mean Corp Hgb Conc 30.9 g/dL (32-36); Mean Corpuscular Hgb 30.3 pg (27.0-32.0); Mean Corpuscular Volume 98.1 fL (81-99); Mean Platelet Vol. 10.7 fl (6.2-12.0); Monocyte# 0.74 X10^3/uL; NRBC Flagged by Analyzer 0 % (0-5); Neutrophil # 5.38 X10^3/uL (2.7-7.7); Neutrophil % 65.3 % (47-70); Platelet Count 240 K/mm3 (150-450); RBC Distribution Width CV 14.6 % (11.6-14.6); RBC Distribution Width SD 51.1 fl (35.1-43.9); White Blood Count 8.2 K/mm3 (4.4-11.0)
[2024-08-11 06:05] LABS: Anion Gap 6 (5-15); BUN 32 mg/dL (7-18); BUN/Creat Ratio 32.5 RATIO (10-20); Calcium,Total 8.6 mg/dL (8.5-10.1); Chloride 109 mmol/L (98-107); Creatinine, Serum 0.98 mg/dL (0.55-1.02); EST Glomerular Filtration Rate 57 mL/min (>60); Est Glom Filt Rate - Afr Amer 68 mL/min (>60); Glucose 109 mg/dL (74-106); Potassium 4.4 mmol/L (3.5-5.1); Sodium Level 138 mmol/L (136-145)
[2024-08-11 06:19] LABS: Bedside Glucose 103 mg/dL (74-106)
--- NOTE | 2024-08-11 09:09 | NURSING ---
Product Design Engineer Note; MDS for 08/11/2024 Complete
[2024-08-11 09:27] VITALS: BP 110/49; PULSE 70; RESP 17; TEMP 36.2; O2SAT 96
[2024-08-11] MEDS: metFORMIN HCl 500 MG Tablet PO (09:31)
[2024-08-11] MEDS: Aspirin 81 MG TAB.CHEW PO (09:31)
[2024-08-11] MEDS: Calcium Carb/Vitamin D 1 TABLET Tablet PO (09:31)
[2024-08-11 09:32] VITALS: PULSE 70
[2024-08-11] MEDS: Citalopram 10 MG Tablet PO (09:32)
[2024-08-11] MEDS: Menthol/Lanolin/Calamine/Znox 113 GM Tube 1 APPLIC TOPICAL ×2 (09:32→21:31)
[2024-08-11] MEDS: Senna/Docusate Sodium 1 Tablet PO ×2 (09:32→21:21)
[2024-08-11] MEDS: Silver Sulfadiazine 1% Crm 50 gm Bottle 1 APPLIC TOPICAL ×2 (09:33→21:23)
--- NOTE | 2024-08-11 10:59 | CASEMGMT ---
Social Work SW left VM with Ruth to follow up on SNF choices. Geraldine Ball, PSYCHIATRIC NP [employer]
--- NOTE | 2024-08-11 13:22 | CASEMGMT ---
Social Work SW completed BIMS (07/09) and PHQ-2 () for MDS assessment. Geraldine Ball, NEWS WRITER STRIPPER MACHINE OPERATOR
--- NOTE | 2024-08-11 14:08 | CASEMGMT ---
Social Work was speaking to this worker in the office when pt's sister, Ruth, presented to the office. Ruth asked several questions to Dr Damon in regards to DC, insurance approving additional time with his blessing. explained pt must continue making progress in therapy for ongoing approval from insurance; explained appeal rights and offered to complete P2P if that became an option, though, acknowledged that is 50/50 change of approval. Sister flustered with information and concerned with pt not receiving additional time from insurance to allow improvement for pt to return home. inquired to sister about pt's memory. Sister did confirm pt's memory has been declining over the last year but on little things and she wasn't worried. explained with pt's fall and multiple changes in environment, pt may be at new baseline, and may not be safe living independently at home anymore. informed sister of pt having hallucinations. Sister stated she was unaware of that. TOM confirmed that pt may continue making progress in therapy, but d/t her current cognition and safety concerns, the DC recommendation for pt to transfer to a SNF, is likely not going to change regardless how long insurance approves additional stay in TCU. TOM informed sister of this worker's observations earlier this week in the evening of pt's confusion, agitation, impulsivity, getting out of her chair and into the hallway repeatedly, despite redirection from staff. SW explained that type of behavior is referred to as sundowning. Sister is aware of the term, but states she has never known pt to act like that. SW offered that sister is a familiar face to the pt, and she may not be visiting during the hours pt is agitated. SW reiterated the goal is for this worker to assist with making referrals to a SNF and inquired about additional choices. Sister stated we've looked at so much and there is nothing available. SW questioned as only one SNF referral has been made and they did not have a bed. Sister stated she and her toured other SNFs. SW questioned those places and explained the official referral process, as that is the way to get the official acceptance/denial. Sister offered [facility] and [facility] to place referrals. SW agreed. TOM reiterated there is no DC date set yet, but the insurance NRD is 08/16 and they will provide a 3-day notice. Sister expressed understanding. SW will continue to follow. Geraldine Ball ,LINE MAINTAINER SECTION TANK ASSEMBLER
[2024-08-11] MEDS: 0.9% Saline Lock 10 ML Syringe IV (14:22)
--- NOTE | 2024-08-11 16:06 | CASEMGMT ---
Social Work Referrals sent to [facility] and [facility] per sisters request. SW will await determination of acceptance. LAYO Younger
[2024-08-11 21:21] VITALS: BP 123/54; PULSE 71
[2024-08-11] MEDS: Metoprolol Tartrate 25 MG Tablet PO (21:21)
[2024-08-11] MEDS: Atorvastatin Calcium 40 MG Tablet PO (21:21)
[2024-08-12] MEDS: Enoxaparin 30 MG/0.3 ML Syringe SC (04:56)
[2024-08-12] MEDS: Acetaminophen 500 MG Tablet 1000 MG PO ×3 (04:56→21:26)
[2024-08-12 05:23] LABS: Hematocrit 30.7 % (37-47); Hemoglobin 9.6 g/dL (12.0-15.0)
[2024-08-12 06:15] LABS: Bedside Glucose 106 mg/dL (74-106)
[2024-08-12 08:11] VITALS: PULSE 73
[2024-08-12] MEDS: metFORMIN HCl 500 MG Tablet PO (08:11)
[2024-08-12] MEDS: Citalopram 10 MG Tablet PO (08:11)
[2024-08-12] MEDS: Senna/Docusate Sodium 1 Tablet PO (08:11)
[2024-08-12] MEDS: Metoprolol Tartrate 25 MG Tablet PO ×2 (08:11→21:26)
[2024-08-12] MEDS: Aspirin 81 MG TAB.CHEW PO (08:11)
[2024-08-12] MEDS: Calcium Carb/Vitamin D 1 TABLET Tablet PO (08:11)
[2024-08-12] MEDS: Menthol/Lanolin/Calamine/Znox 113 GM Tube 1 APPLIC TOPICAL ×2 (08:12→21:28)
[2024-08-12] MEDS: LORazepam 0.5 MG Tablet PO (09:35)
[2024-08-12] MEDS: 0.9% Saline Lock 10 ML Syringe IV ×3 (09:39→21:25)
[2024-08-12] MEDS: Tuberculin,Purif.prot.deriv. 50 TU/ML Vial 0.1 ML ID (09:41)
--- NOTE | 2024-08-12 10:43 | RAD_ITS ---
STUDY: X-RAY - ABDOMEN/PELVIS REASON FOR EXAM: Female, 88 years old. Encephalopathy workup TECHNIQUE: Two AP supine views of the abdomen and pelvis. COMPARISON: None. FINDINGS: Normal visualized lung bases. Nonobstructive bowel gas pattern. Mild gaseous distention of the transverse and descending colon seen. Moderate stool retention seen in the rectosigmoid colon. Normal soft tissue structures. Normal visualized osseous structures. RAD/Abdomen Single View IMPRESSION: 1. Mild gaseous distention of the transverse and descending colon seen. Moderate stool retention seen in the rectosigmoid colon. Electronically Signed: Hari Reza MD at 13:10 EST ,
--- NOTE | 2024-08-12 10:44 | RAD_ITS ---
STUDY: X-RAY CHEST REASON FOR EXAM: Female, 88 years old. Encephalopathy workup TECHNIQUE: PA and lateral views of the chest. COMPARISON: None. FINDINGS: No visualized consolidation. Moderate cystic emphysematous changes and hyperinflation. There is no demonstrated pleural abnormality. Sternal cerclage wires and vascular clips are present from a prior sternotomy and coronary artery bypass graft procedure (CABG). Heart size. Normal mediastinum and deepak. Normal visualized pulmonary arteries. There is atherosclerotic calcification of the aortic arch with tortuosity. There are diffuse degenerative changes of the visualized thoracic spine. Normal visualized ribs, clavicles, and shoulders. There is no demonstrated abnormality of the visualized soft tissue structures of the upper abdomen. RAD/Chest PA and Lateral IMPRESSION: COPD Electronically Signed: Hari Reza MD at 11:59 EST ,
[2024-08-12 11:04] LABS: Absolute Lymphocyte Count 1.15 X10^3/uL (0.83-4.51); Absolute Neutrophil Count 5.4 X10^3/uL (2.0-7.7); Basophil# 0.05 X10^3/uL; Basophil% 0.7 % (0-1); Eosinophil# 0.13 X10^3/uL; Eosinophils% 1.8 % (0-5); Hematocrit 34.3 % (37-47); Hemoglobin 10.6 g/dL (12.0-15.0); Lymphocyte # 1.15 X10^3/ul (0.83-4.51); Lymphocyte % 15.7 % (19-41); Mean Corp Hgb Conc 30.9 g/dL (32-36); Mean Corpuscular Hgb 29.7 pg (27.0-32.0); Mean Corpuscular Volume 96.1 fL (81-99); Mean Platelet Vol. 10.5 fl (6.2-12.0); Monocyte# 0.58 X10^3/uL; Monocyte% 7.9 % (0-10); NRBC Flagged by Analyzer 0 % (0-5); Neutrophil % 73.6 % (47-70); Platelet Count 264 K/mm3 (150-450); RBC Distribution Width CV 14.7 % (11.6-14.6); RBC Distribution Width SD 51.5 fl (35.1-43.9); Red Blood Count 3.57 M/mm3 (4.2-5.4); White Blood Count 7.3 K/mm3 (4.4-11.0)
[2024-08-12 11:32] LABS: Anion Gap 7 (5-15); BUN 23 mg/dL (7-18); BUN/Creat Ratio 23.3 RATIO (10-20); Calcium,Total 9.3 mg/dL (8.5-10.1); Chloride 106 mmol/L (98-107); Creatinine, Serum 0.99 mg/dL (0.55-1.02); EST Glomerular Filtration Rate 56 mL/min (>60); Est Glom Filt Rate - Afr Amer 68 mL/min (>60); Estimated Creatinine Clearance 28.21 ml/min; Glucose 144 mg/dL (74-106); Potassium 4.2 mmol/L (3.5-5.1); Sodium Level 137 mmol/L (136-145)
[2024-08-12] MEDS: Silver Sulfadiazine 1% Crm 50 gm Bottle 1 APPLIC TOPICAL ×2 (11:51→21:29)
[2024-08-12] MEDS: 0.9% Normal Saline (1000mL) 1,000 ML 75 ML IV (11:58)
[2024-08-12] MEDS: LORazepam 1 MG Tablet PO ×2 (13:35→21:33)
[2024-08-12 15:42] VITALS: BP 118/54; PULSE 73; RESP 14; TEMP 36.6; O2SAT 93
[2024-08-12 15:50] LABS: Bacteria 0 SEEN /hpf (None Seen); Mucous, Urine 0 SEEN /hpf (<or=2+); Squamous Epithelial Cells - UA 0 SEEN /hpf (5-10)
--- NOTE | 2024-08-12 15:50 | NURSING ---
Late entry: Approx. 9:20am Alarm going off. AUTO TUNE UP MECHANIC went to assist pt. Pt attempted to hit staff member with phone. Several attempts made to redirect pt. Pt getting up out of the chair, very restless. Food offered, fluids, restroom etc. Ativan administered. Pt was brought [facility] Pt spoke with sister on the phone at the nurses' station. Approx. 10:10am Pt pulled hair spray from purse while standing up and sprayed staff member. Several staff assisted to retrieve hair spray and help pt sit down safely. Pt was redirected. Dr Damon notified. CXR, KUB, pelvis xray, CBC w/ Diff, UA and culture, resp panel, COVID swab ordered. Dr. Damon requested Ativan be increased ro 1mg and NS be started at 75ml/hr administering 1000ml.
[2024-08-12 16:00] LABS: Color, Urine Yellow (Yellow); Glucose, Dipstick Normal (Normal); Ketone-Dipstick Negative (Negative); Leukocyte Esterase-Dipstick Negative /ul (Negative); Nitrite-Dipstick Negative (Negative); Occult Blood-Urine Negative /ul (Negative); Protein-Dipstick Negative (Negative); Urine Bilirubin Dipstick Negative (Negative); Urine Clarity Clear (Clear); Urine Urobilinogen Normal (Normal)
[2024-08-12 16:23] LABS: White Blood Cells 0-5 SEEN /hpf (0-5)
[2024-08-12 16:24] LABS: Red Blood Cells-Urine 0-5 SEEN /hpf (0-5)
--- NOTE | 2024-08-12 16:52 | NURSING ---
Dr Connolly notified of KUB result. SSE odered.
[2024-08-12 21:26] VITALS: BP 159/72; PULSE 76
[2024-08-12] MEDS: Atorvastatin Calcium 40 MG Tablet PO (21:27)
--- NOTE | 2024-08-12 21:33 | NURSING ---
Attempts self transfer, confused. Agitated at this time. 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 Demands to see dentures, stating someone took them. Dentures observed soaking, showed to patient, patient requests for dentures back in mouth, provided to patient per request. Repositioned in bed safely. Patient observed to have self removed IV, IV cannula observed intact. PRN Ativan administered as ordered. Bed in lowest position, personal alarm in place per order and functioning properly, personal items within reach. Denies requests. Call light in reach
[2024-08-13 04:34] VITALS: PULSE 80; RESP 18; O2SAT 93
[2024-08-13] MEDS: Acetaminophen 500 MG Tablet 1000 MG PO ×3 (05:26→21:56)
[2024-08-13] MEDS: Enoxaparin 30 MG/0.3 ML Syringe SC (05:26)
[2024-08-13 06:26] LABS: Bedside Glucose 88 mg/dL (74-106)
[2024-08-13 08:09] VITALS: BP 104/46; PULSE 65; RESP 16; TEMP 36.7; O2SAT 92
[2024-08-13] MEDS: Aspirin 81 MG TAB.CHEW PO (08:12)
[2024-08-13] MEDS: Menthol/Lanolin/Calamine/Znox 113 GM Tube 1 APPLIC TOPICAL ×2 (08:13→21:55)
[2024-08-13] MEDS: Calcium Carb/Vitamin D 1 TABLET Tablet PO (08:13)
[2024-08-13] MEDS: metFORMIN HCl 500 MG Tablet PO (08:13)
[2024-08-13 08:15] VITALS: PULSE 77
[2024-08-13] MEDS: Metoprolol Tartrate 25 MG Tablet PO ×2 (08:15→21:56)
[2024-08-13] MEDS: Senna/Docusate Sodium 1 Tablet PO ×2 (08:15→21:55)
[2024-08-13] MEDS: Citalopram 10 MG Tablet PO (08:15)
[2024-08-13] MEDS: Silver Sulfadiazine 1% Crm 50 gm Bottle 1 APPLIC TOPICAL ×2 (08:16→21:55)
[2024-08-13 21:56] VITALS: BP 112/56; PULSE 67
[2024-08-13] MEDS: Atorvastatin Calcium 40 MG Tablet PO (21:57)
[2024-08-13] MEDS: 0.9% Saline Lock 10 ML Syringe IV (21:58)
--- NOTE | 2024-08-14 01:52 | NURSING ---
Confidential voicemail left for wound nurse requesting assessment of wound order to right thigh wound
[2024-08-14] MEDS: Acetaminophen 500 MG Tablet 1000 MG PO ×3 (05:44→20:01)
[2024-08-14] MEDS: Enoxaparin 30 MG/0.3 ML Syringe SC (05:44)
[2024-08-14 06:36] LABS: Bedside Glucose 104 mg/dL (74-106)
[2024-08-14] MEDS: Menthol/Lanolin/Calamine/Znox 113 GM Tube 1 APPLIC TOPICAL ×2 (08:30→20:06)
[2024-08-14] MEDS: Silver Sulfadiazine 1% Crm 50 gm Bottle 1 APPLIC TOPICAL ×2 (08:30→19:59)
--- NOTE | 2024-08-14 08:51 | NURSING ---
pt assisted to BR, had LG semiformed brown stool. RT thigh burn dressing removed, cleansed with antibacterial soap and applied silvadene to area, placed x2 ABD's and wrapped with ABIDA. pt denies pain. area reddened, small amt serous drng. pt pleasant and cooperative. Therapy wheeled pt down to therapy room.
--- NOTE | 2024-08-14 09:05 | CASEMGMT ---
Social Work SW received call from sister inquiring about the DC date this week. SW reeducated to the insurance update on 08/16 and if the insurance issues a DC date, it will provide a 3-day notice, but the insurance could also approve continued stay. Sister asked for that to be repeated. SW repeated. Sister inquired if the insurance will cover those 3 days. SW explained the 2 days are covered, but the day of DC is not a charged day as the pt does not receive services. SHARON on the phone call as well and repeated back the information. Sister also expressed understanding. SW inquired if sister could provide copies of pt's advanced directives. Sister agreed; she is visiting this date and will provide the nurse's station with the documents. Geraldine Ball MSW SCREEN PRINT OPERATOR
[2024-08-14 09:45] VITALS: BP 82/41; PULSE 63; RESP 16; TEMP 36.6; O2SAT 97
[2024-08-14 09:49] VITALS: PULSE 63
[2024-08-14] MEDS: Aspirin 81 MG TAB.CHEW PO (09:50)
[2024-08-14] MEDS: metFORMIN HCl 500 MG Tablet PO (09:51)
[2024-08-14] MEDS: Calcium Carb/Vitamin D 1 TABLET Tablet PO (09:51)
[2024-08-14] MEDS: Citalopram 10 MG Tablet PO (09:51)
[2024-08-14 10:52] VITALS: BP 118/63; PULSE 58
--- NOTE | 2024-08-14 11:09 | NURSING ---
dr puri notified of low BP this am 82/41 HR 63, asymptomatic. encouraged fluids. held lopressor. rechecked BP after therapy 118/63 hr 58, new order to decrease lopressor 12.5mg & parameters added to MAR. Encouraging fluids & pt taking with reminders. sign placed in room as reminder to pt to keep drinking.
[2024-08-14] MEDS: 0.9% Saline Lock 10 ML Syringe IV (14:14)
--- NOTE | 2024-08-14 15:27 | CASEMGMT ---
Social Work SW phoned sister, mireya VALDEZ that [facility] can accept pt; [facility] denied. Requested return call to secure SNF. Geraldine Ball, SILK HANGER COMPUTER FORENSIC SPECIALIST
[2024-08-14 19:46] VITALS: RESP 16
[2024-08-14] MEDS: Senna/Docusate Sodium 1 Tablet PO (20:00)
[2024-08-14] MEDS: LORazepam 1 MG Tablet PO (20:00)
[2024-08-14] MEDS: Atorvastatin Calcium 40 MG Tablet PO (20:00)
[2024-08-14 20:01] VITALS: BP 121/49; PULSE 66
[2024-08-14] MEDS: Metoprolol Tartrate 25 MG Tablet 12.5 MG PO (20:01)
[2024-08-15] MEDS: Enoxaparin 30 MG/0.3 ML Syringe SC (06:44)
[2024-08-15] MEDS: Acetaminophen 500 MG Tablet 1000 MG PO ×3 (06:44→21:58)
[2024-08-15 06:46] LABS: Bedside Glucose 100 mg/dL (74-106)
[2024-08-15 07:59] VITALS: BP 115/54; PULSE 86; RESP 16; TEMP 36.4; O2SAT 95
[2024-08-15 08:03] VITALS: PULSE 86
[2024-08-15] MEDS: Calcium Carb/Vitamin D 1 TABLET Tablet PO (08:03)
[2024-08-15] MEDS: Citalopram 10 MG Tablet PO (08:03)
[2024-08-15] MEDS: metFORMIN HCl 500 MG Tablet PO (08:03)
[2024-08-15] MEDS: Aspirin 81 MG TAB.CHEW PO (08:03)
[2024-08-15] MEDS: Metoprolol Tartrate 25 MG Tablet 12.5 MG PO ×2 (08:03→21:57)
[2024-08-15] MEDS: Menthol/Lanolin/Calamine/Znox 113 GM Tube 1 APPLIC TOPICAL ×2 (08:04→21:58)
--- NOTE | 2024-08-15 09:10 | WOUNDNOTE ---
wound photo: right thigh
[2024-08-15] MEDS: Silver Sulfadiazine 1% Crm 50 gm Bottle 1 APPLIC TOPICAL ×2 (10:45→21:58)
[2024-08-15 10:46] VITALS: PULSE 62; RESP 16; O2SAT 94
--- NOTE | 2024-08-15 13:00 | CASEMGMT ---
Addendum entered by Geraldine Ball 08/15/24 14:57: SW received return phone call from sister. Sister inquired about a DC date. SW reiterated the insurance company will determine the DC date after the review of the update, scheduled for 08/16. SW explained [facility] accepted [facility] pt. Sister replied, where is that? SW stated that is one of the facilities sister asked this worker to refer to for pt to DC. Sister replied, I'm not sure what I'm going to do this. SW requested clarification. Sister explained she just cannot send [pt] to a [facility]. I've toured so many, and I just can't send her there. I think I will take her home with me. SW appreciated the difficulty of the situation, however, stressed concern for pt being safe and needing 24/7 care. Sister stated she wants to avoid having pt go through another change in environment. SW noted if sister takes pt to her home vs the pt's home, that would also be a change in environment. Sister refuted, stating that her home is familiar to pt and would not have that affect on the pt. SW acknowledged. Requested to schedule an upcoming day for sister to attend shared care to ensure sister can meet pt's needs for DC. Offered tomorrow or the following day, begin at 7/8 am, all day, until pt is asleep, to allow time for episodes. Sister denied, that does not work for her schedule. SW questioned sister being able to care for pt at home 24/7. Sister stated she would have help, but could not elaborate. Sister requested time to think about the DC decision, inquiring when she would need to decide. SW reiterated the insurance process and DC may be as early as 08/19. IDT will continue working with pt as long as insurance approves. SW will remain available for additional questions and DC planning. Original Note: Social Work SW left another VM with sister to discuss DC plans. Geraldine Ball, CATHERINE BARRERAW
[2024-08-15 15:00] VITALS: BMI 22.2
[2024-08-15 21:57] VITALS: BP 120/45; PULSE 65
[2024-08-15] MEDS: Senna/Docusate Sodium 1 Tablet PO (21:58)
[2024-08-15] MEDS: Atorvastatin Calcium 40 MG Tablet PO (21:58)
[2024-08-15 22:00] VITALS: BP 120/45; PULSE 65
[2024-08-16] MEDS: Acetaminophen 500 MG Tablet 1000 MG PO ×2 (05:09→15:20)
[2024-08-16] MEDS: Enoxaparin 30 MG/0.3 ML Syringe SC (05:09)
[2024-08-16 06:19] LABS: Bedside Glucose 101 mg/dL (74-106)
[2024-08-16 08:04] VITALS: BP 110/48; PULSE 70; RESP 16; O2SAT 95
[2024-08-16] MEDS: Aspirin 81 MG TAB.CHEW PO (08:34)
[2024-08-16] MEDS: metFORMIN HCl 500 MG Tablet PO (08:34)
[2024-08-16] MEDS: Menthol/Lanolin/Calamine/Znox 113 GM Tube 1 APPLIC TOPICAL ×2 (08:35→20:37)
[2024-08-16] MEDS: Calcium Carb/Vitamin D 1 TABLET Tablet PO (08:35)
[2024-08-16] MEDS: Citalopram 10 MG Tablet PO (08:35)
[2024-08-16] MEDS: Senna/Docusate Sodium 1 Tablet PO ×2 (08:36→20:39)
[2024-08-16] MEDS: Silver Sulfadiazine 1% Crm 50 gm Bottle 1 APPLIC TOPICAL ×2 (08:36→20:39)
--- NOTE | 2024-08-16 08:36 | MDS.RN ---
Information for the MDS was obtained from review of the clinical record, interview of resident, staff, and direct observation of resident?s care.
--- NOTE | 2024-08-16 14:35 | CASEMGMT ---
Social Work Sister called to the nurse's station asking to relay message to this worker that sister is unable to meet with this worker today. SW left follow up VM with sister. Geraldine Ball, SURFACE WATER TECHNICIAN LAP MACHINE TENDER
[2024-08-16 20:38] VITALS: PULSE 66
[2024-08-16] MEDS: Atorvastatin Calcium 40 MG Tablet PO (20:38)
[2024-08-16] MEDS: Metoprolol Tartrate 25 MG Tablet 12.5 MG PO (20:38)
[2024-08-17] MEDS: Acetaminophen 500 MG Tablet 1000 MG PO ×3 (06:15→21:03)
[2024-08-17] MEDS: Enoxaparin 30 MG/0.3 ML Syringe SC (06:15)
[2024-08-17 06:53] LABS: Bedside Glucose 105 mg/dL (74-106)
[2024-08-17] MEDS: Aspirin 81 MG TAB.CHEW PO (08:34)
[2024-08-17] MEDS: metFORMIN HCl 500 MG Tablet PO (08:34)
[2024-08-17] MEDS: Senna/Docusate Sodium 1 Tablet PO ×2 (08:34→21:03)
[2024-08-17 08:35] VITALS: BP 86/33; PULSE 75; RESP 16; TEMP 36.5; O2SAT 96
[2024-08-17] MEDS: Menthol/Lanolin/Calamine/Znox 113 GM Tube 1 APPLIC TOPICAL ×2 (08:35→21:04)
[2024-08-17] MEDS: Calcium Carb/Vitamin D 1 TABLET Tablet PO (08:35)
[2024-08-17] MEDS: Citalopram 10 MG Tablet PO (08:35)
--- NOTE | 2024-08-17 10:00 | CASEMGMT ---
Social Work SW received return phone call from sister with her also participating on the phone call. SW explained there has not been an outcome from the insurance update yet, but inquired about the DC plan. Sister stated she will be taking the pt to her house in [place] and care for her. SW inquired about scheduling a time for sister to participate in therapy training. Sister requested 08/18 at 1100. SW to notify therapists. Sister denied any DME needs for pt. Her home has 2 BENJAMIN, WIS or bathtub and shower chair. SW recommended skilled HHC. Sister agreed and accepted list of providers that includes quality and resource data via email. Email provided and SW sent via [employer] link. SW updated IDT. Will continue to follow. CATHERINE SebastianW
[2024-08-17] MEDS: LORazepam 1 MG Tablet PO (13:30)
[2024-08-17] MEDS: Silver Sulfadiazine 1% Crm 50 gm Bottle 1 APPLIC TOPICAL ×2 (13:32→21:04)
--- NOTE | 2024-08-17 13:50 | NURSING ---
Dressing to wound changed per orders.
--- NOTE | 2024-08-17 16:53 | CASEMGMT ---
Addendum entered by Geraldine Ball 08/17/24 17:18: Sister returned call. SW reiterated explanation of insurance approval. Sister will anticipate DC 08/24. SW will follow to finalize DC needs. Original Note: Social Work SW left VM with sister notifying of insurance outcome - NRD 08/21 to allow for therapy training - anticipated DC 08/24. Geraldine Ball, CATHERINE BARRERAW
[2024-08-17 20:58] VITALS: BP 140/73; PULSE 62
[2024-08-17 21:03] VITALS: BP 140/73; PULSE 62
[2024-08-17] MEDS: Atorvastatin Calcium 40 MG Tablet PO (21:03)
[2024-08-17] MEDS: Metoprolol Tartrate 25 MG Tablet 12.5 MG PO (21:03)
[2024-08-17 21:21] VITALS: PULSE 62; RESP 16
[2024-08-18] MEDS: Acetaminophen 500 MG Tablet 1000 MG PO ×3 (05:16→19:48)
[2024-08-18] MEDS: Enoxaparin 30 MG/0.3 ML Syringe SC (05:16)
[2024-08-18 05:19] VITALS: RESP 16
[2024-08-18 05:58] LABS: Absolute Lymphocyte Count 1.47 X10^3/uL (0.83-4.51); Absolute Neutrophil Count 3.1 X10^3/uL (2.0-7.7); Basophil# 0.04 X10^3/uL; Basophil% 0.7 % (0-1); Eosinophil# 0.27 X10^3/uL; Eosinophils% 4.8 % (0-5); Hematocrit 30.1 % (37-47); Hemoglobin 9.6 g/dL (12.0-15.0); Lymphocyte # 1.47 X10^3/ul (0.83-4.51); Lymphocyte % 26.2 % (19-41); Mean Corp Hgb Conc 31.9 g/dL (32-36); Mean Corpuscular Hgb 30.7 pg (27.0-32.0); Mean Corpuscular Volume 96.2 fL (81-99); Mean Platelet Vol. 10.9 fl (6.2-12.0); Monocyte# 0.69 X10^3/uL; Monocyte% 12.3 % (0-10); NRBC Flagged by Analyzer 0 % (0-5); Neutrophil # 3.14 X10^3/uL (2.7-7.7); Neutrophil % 55.8 % (47-70); Platelet Count 242 K/mm3 (150-450); RBC Distribution Width CV 15.6 % (11.6-14.6); RBC Distribution Width SD 54.6 fl (35.1-43.9); Red Blood Count 3.13 M/mm3 (4.2-5.4); White Blood Count 5.6 K/mm3 (4.4-11.0)
[2024-08-18 06:21] LABS: Bedside Glucose 107 mg/dL (74-106)
[2024-08-18 06:29] LABS: Anion Gap 4 (5-15); BUN 23 mg/dL (7-18); BUN/Creat Ratio 23.7 RATIO (10-20); Calcium,Total 8.9 mg/dL (8.5-10.1); Chloride 104 mmol/L (98-107); Creatinine, Serum 0.97 mg/dL (0.55-1.02); EST Glomerular Filtration Rate 57 mL/min (>60); Est Glom Filt Rate - Afr Amer 70 mL/min (>60); Glucose 104 mg/dL (74-106); Potassium 4.4 mmol/L (3.5-5.1); Sodium Level 136 mmol/L (136-145)
[2024-08-18 07:34] VITALS: BP 143/50; PULSE 68; RESP 16; TEMP 36.3; O2SAT 97
[2024-08-18 07:36] VITALS: PULSE 68
[2024-08-18] MEDS: Calcium Carb/Vitamin D 1 TABLET Tablet PO (07:36)
[2024-08-18] MEDS: metFORMIN HCl 500 MG Tablet PO (07:36)
[2024-08-18] MEDS: Aspirin 81 MG TAB.CHEW PO (07:36)
[2024-08-18] MEDS: Metoprolol Tartrate 25 MG Tablet 12.5 MG PO ×2 (07:36→19:47)
[2024-08-18] MEDS: Senna/Docusate Sodium 1 Tablet PO ×2 (07:36→19:49)
[2024-08-18] MEDS: Citalopram 10 MG Tablet PO (07:36)
[2024-08-18] MEDS: Menthol/Lanolin/Calamine/Znox 113 GM Tube 1 APPLIC TOPICAL ×2 (07:37→19:49)
[2024-08-18] MEDS: Silver Sulfadiazine 1% Crm 50 gm Bottle 1 APPLIC TOPICAL ×2 (10:20→19:48)
--- NOTE | 2024-08-18 10:28 | NURSING ---
dressing changed to RT upper thigh, cleansed per order, some sloughing noted but is coming off with cleansing. pt denies pain. call light in reach. alarm in place on chair. no attempts of getting up on own so far this shift.
--- NOTE | 2024-08-18 12:02 | WOUNDNOTE ---
Right thigh burn dressing changed by nursing this am. will reassess again on Wednesday.
[2024-08-18 19:47] VITALS: BP 129/59; PULSE 63
[2024-08-18] MEDS: Atorvastatin Calcium 40 MG Tablet PO (19:49)
[2024-08-18 19:52] VITALS: BP 129/59; PULSE 63
[2024-08-19] MEDS: Enoxaparin 30 MG/0.3 ML Syringe SC (05:15)
[2024-08-19] MEDS: Acetaminophen 500 MG Tablet 1000 MG PO ×2 (05:16→21:13)
[2024-08-19 05:21] VITALS: PULSE 64
[2024-08-19 06:00] LABS: Hemoglobin 9.9 g/dL (12.0-15.0)
[2024-08-19 06:12] LABS: Bedside Glucose 95 mg/dL (74-106)
[2024-08-19 08:50] VITALS: BP 99/70; PULSE 59; RESP 16; TEMP 36.4; O2SAT 96
[2024-08-19 08:55] VITALS: BP 99/70; PULSE 59
[2024-08-19] MEDS: Menthol/Lanolin/Calamine/Znox 113 GM Tube 1 APPLIC TOPICAL ×2 (08:55→21:27)
[2024-08-19] MEDS: Calcium Carb/Vitamin D 1 TABLET Tablet PO (08:55)
[2024-08-19] MEDS: Aspirin 81 MG TAB.CHEW PO (08:55)
[2024-08-19] MEDS: Citalopram 10 MG Tablet PO (08:55)
[2024-08-19] MEDS: metFORMIN HCl 500 MG Tablet PO (08:55)
[2024-08-19] MEDS: Senna/Docusate Sodium 1 Tablet PO ×2 (08:56→21:12)
[2024-08-19] MEDS: Silver Sulfadiazine 1% Crm 50 gm Bottle 1 APPLIC TOPICAL ×2 (08:56→21:17)
[2024-08-19 21:13] VITALS: BP 132/55; PULSE 65
[2024-08-19] MEDS: Metoprolol Tartrate 25 MG Tablet 12.5 MG PO (21:13)
[2024-08-19] MEDS: LORazepam 1 MG Tablet PO (21:13)
[2024-08-19] MEDS: Atorvastatin Calcium 40 MG Tablet PO (21:15)
[2024-08-20] MEDS: Enoxaparin 30 MG/0.3 ML Syringe SC (05:33)
[2024-08-20] MEDS: Acetaminophen 500 MG Tablet 1000 MG PO ×2 (05:33→20:51)
[2024-08-20 06:01] LABS: Bedside Glucose 91 mg/dL (74-106)
[2024-08-20 10:25] VITALS: BP 96/42; PULSE 64; RESP 16; TEMP 36.4; O2SAT 95
[2024-08-20 10:29] VITALS: PULSE 64
[2024-08-20] MEDS: Calcium Carb/Vitamin D 1 TABLET Tablet PO (10:30)
[2024-08-20] MEDS: Menthol/Lanolin/Calamine/Znox 113 GM Tube 1 APPLIC TOPICAL ×2 (10:30→20:53)
[2024-08-20] MEDS: Citalopram 10 MG Tablet PO (10:30)
[2024-08-20] MEDS: metFORMIN HCl 500 MG Tablet PO (10:30)
[2024-08-20] MEDS: Aspirin 81 MG TAB.CHEW PO (10:30)
[2024-08-20] MEDS: Silver Sulfadiazine 1% Crm 50 gm Bottle 1 APPLIC TOPICAL ×2 (10:31→20:50)
[2024-08-20] MEDS: Senna/Docusate Sodium 1 Tablet PO ×2 (10:31→20:51)
[2024-08-20] MEDS: LORazepam 1 MG Tablet PO (20:51)
[2024-08-20 20:53] VITALS: BP 135/54; PULSE 69
[2024-08-20] MEDS: Metoprolol Tartrate 25 MG Tablet 12.5 MG PO (20:53)
[2024-08-20] MEDS: Atorvastatin Calcium 40 MG Tablet PO (20:53)
[2024-08-21] MEDS: Enoxaparin 30 MG/0.3 ML Syringe SC (05:17)
[2024-08-21] MEDS: Acetaminophen 500 MG Tablet 1000 MG PO ×3 (05:17→20:30)
[2024-08-21 06:58] LABS: Bedside Glucose 103 mg/dL (74-106)
[2024-08-21] MEDS: Silver Sulfadiazine 1% Crm 50 gm Bottle 1 APPLIC TOPICAL ×2 (07:48→20:33)
[2024-08-21] MEDS: Aspirin 81 MG TAB.CHEW PO (07:51)
[2024-08-21 07:52] VITALS: PULSE 84
[2024-08-21] MEDS: Menthol/Lanolin/Calamine/Znox 113 GM Tube 1 APPLIC TOPICAL ×2 (07:52→20:30)
[2024-08-21] MEDS: Metoprolol Tartrate 25 MG Tablet 12.5 MG PO ×2 (07:52→20:29)
[2024-08-21] MEDS: metFORMIN HCl 500 MG Tablet PO (07:52)
[2024-08-21] MEDS: Citalopram 10 MG Tablet PO (07:52)
[2024-08-21] MEDS: Senna/Docusate Sodium 1 Tablet PO ×2 (07:52→20:29)
[2024-08-21] MEDS: Calcium Carb/Vitamin D 1 TABLET Tablet PO (07:52)
[2024-08-21 07:55] VITALS: BP 107/53; PULSE 85; RESP 16; TEMP 36; O2SAT 93
[2024-08-21 08:05] VITALS: PULSE 85; RESP 16; O2SAT 93
--- NOTE | 2024-08-21 16:12 | NURSING ---
sister cancelled appt for tomorrow for pt shoulder f/u.
[2024-08-21 20:29] VITALS: BP 138/62; PULSE 68
[2024-08-21] MEDS: Atorvastatin Calcium 40 MG Tablet PO (20:29)
[2024-08-21] MEDS: LORazepam 1 MG Tablet PO (20:29)
[2024-08-21 20:46] VITALS: BP 138/62; PULSE 68
[2024-08-22] MEDS: Enoxaparin 30 MG/0.3 ML Syringe SC (05:42)
[2024-08-22] MEDS: Acetaminophen 500 MG Tablet 1000 MG PO ×3 (05:42→20:38)
[2024-08-22 06:28] LABS: Bedside Glucose 96 mg/dL (74-106)
[2024-08-22 07:23] VITALS: BP 140/56; PULSE 61; RESP 16; TEMP 36.4; O2SAT 94
[2024-08-22] MEDS: Aspirin 81 MG TAB.CHEW PO (07:25)
[2024-08-22] MEDS: metFORMIN HCl 500 MG Tablet PO (07:25)
[2024-08-22 07:26] VITALS: PULSE 61
[2024-08-22] MEDS: Calcium Carb/Vitamin D 1 TABLET Tablet PO (07:26)
[2024-08-22] MEDS: Menthol/Lanolin/Calamine/Znox 113 GM Tube 1 APPLIC TOPICAL ×2 (07:26→20:38)
[2024-08-22] MEDS: Metoprolol Tartrate 25 MG Tablet 12.5 MG PO ×2 (07:26→20:37)
[2024-08-22] MEDS: Citalopram 10 MG Tablet PO (07:26)
[2024-08-22] MEDS: Senna/Docusate Sodium 1 Tablet PO ×2 (07:26→20:38)
[2024-08-22] MEDS: Silver Sulfadiazine 1% Crm 50 gm Bottle 1 APPLIC TOPICAL ×2 (09:59→20:38)
--- NOTE | 2024-08-22 10:14 | NURSING ---
wound nurse here, dressing changed rt thigh
--- NOTE | 2024-08-22 10:42 | WOUNDNOTE ---
wound photo: right thigh
[2024-08-22 10:52] VITALS: BMI 21.7
--- NOTE | 2024-08-22 10:53 | CASEMGMT ---
Addendum entered by Geraldine Ball 08/22/24 15:53: Sister returned call requesting referrals to [facility] and [facility]. Referrals sent via [facility]. Addendum entered by Geraldine Ball 08/22/24 15:29: [facility] cannot accept d/t staffing. - [employer] also requesting a pediatric FWW for pt. SW to follow up with sister again on current DME. - SW phoned sister to inquire about FWW and if she can bring in the walker to ensure it fits the pt. Sister agreed. SW inquired about choosing another [facility] agency. Sister to review list and notify this worker. SW will continue to follow. Original Note: Social Work Insurance issued LCD 08/24, DC 08/25 - SW phoned sister to notify of DC date and explain appeal rights. Sister stated oh I thought it was (08/24), but that's okay, one more day of therapy. SW educated that there is no discharge set prior as the insurance issues it, and confirmed will receive therapy, expect for the day of DC. SW inquired about skilled [facility] agency preference, referencing the list this worker sent to the sister prior. Sister could not recall getting the list, but that she asked if there was a [facility]. SW confirmed and offered to send referral. Sister confirmed. SW confirmed pt will be discharging to sister's home and confirmed address. Sister confirmed and will be transporting pt at DC. Sister denied any DME needs for pt. - TOM spoke with pt at bedside and notified of DC date for 08/25 and referral to [facility]. Pt agreed. - TOM sent referral to [facility] via [facility] for PT/OT/ST/SN/SW. Plan: DC to sister's home 08/25, [facility] PT/OT/ST/SN/SW Geraldine Ball, CATHERINE BARRERAW
[2024-08-22 18:19] VITALS: RESP 15; O2SAT 95
--- NOTE | 2024-08-22 19:18 | DS.PCM_ITS ---
Providers Date of Admission: 08/04/24 Primary Care Physician: Alissa Primary Care Phys Consultations 08/10/24 13:57 Consult: Onc/Wound/bellows assembler Routine Comment: Reason for Consult:: LG RT upper thigh coffee burn Reason For Visit: FALL, PELVIC FRACTURE, NEAR SYNCOPE Diagnosis Discharge Diagnosis (1) Debility: Status: Acute Code(s): R53.81 - Other malaise (2) Syncope: Status: Acute Code(s): R55 - Syncope and collapse (3) Pelvic fracture: Status: Acute Code(s): S32.9XXA - Fracture of unspecified parts of lumbosacral spine and pelvis, initial encounter for closed fracture (4) Atrial fibrillation: Status: Acute Code(s): I48.91 - Unspecified atrial fibrillation (5) Osteoarthritis: Status: Acute Code(s): M19.90 - Unspecified osteoarthritis, unspecified site (6) Aortic stenosis: Status: Acute Code(s): I35.0 - Nonrheumatic aortic (valve) stenosis (7) Coronary artery disease: Status: Acute Code(s): I25.10 - Atherosclerotic heart disease of [place] coronary artery without angina pectoris (8) Bilateral carotid artery stenosis: Status: Acute Code(s): I65.23 - Occlusion and stenosis of bilateral carotid arteries (9) Type 2 diabetes mellitus with hyperglycemia: Status: Acute Code(s): E11.65 - Type 2 diabetes mellitus with hyperglycemia (10) Essential (primary) hypertension: Status: Acute Code(s): I10 - Essential (primary) hypertension (11) Hyperlipidemia, unspecified: Status: Acute Code(s): E78.5 - Hyperlipidemia, unspecified Plan 88 year old female with below past medical history hospitalized for fall 2/2 syncope, complicated by pelvis fracture, admitted to TCU with debility, here for rehabilitation, strengthening, prior to discharge home alone. * Debility - PT/OT. * Pain - Tylenol 1000mg q8, Tramadol 50mg q6 prn pain (1-5), Oxycodone 2.5mg q4 prn pain (6-10). * Bowel - senna/colace 1 tablet bid, Magnesium citrate 300mL daily prn. * Adult immunization - Administer pneumonia vaccine, covid vaccine, flu vaccine as appropriate. * DVT prophylaxis - Lovenox 30mg sc daily. * Hypertension - Metoprolol 25mg bid, Amlodipine 10mg daily. * Coronary artery disease - Metoprolol 25mg bid, Aspirin 81mg daily. * Hyperlipidemia - Atorvastatin 40mg qhs, Zetia 10mg daily. * Muscle spasm - Baclofen 5mg po tid. * Calcium deficiency - Calcium D 1 tablet daily. * Diabetes Mellitus II - Metformin 500mg daily. * Atrial fibrillation - Metoprolol 25mg bid, Aspirin 81mg daily, not on anticoagulation, resident sees cardiology in [place]. Medications at Discharge Home Medications aspirin 81 mg capsule 81 mg PO DAILY blood thinner 08/04/24 atorvastatin 40 mg tablet 40 mg PO DAILY cholesterol 08/04/24 calcium 500 mg (as carbonate)-vitamin D3 5 mcg (200 unit) tablet 1 tab PO DAILY supplement 08/04/24 ezetimibe 10 mg tablet 10 mg PO DAILY cholesterol 08/04/24 metformin 500 mg tablet 500 mg PO DAILY blood sugar 08/04/24 acetaminophen 500 mg tablet 1,000 mg (2 x 500 mg) PO Q8 #0 tabs 08/22/24 citalopram 10 mg tablet 10 mg PO DAILY 30 days #30 tabs 08/22/24 metoprolol tartrate 25 mg tablet 12.5 mg (1/2 x 25 mg) PO BID 30 days #30 tabs 08/22/24 Hospital Course Operations None Procedures None Summary of Care Provided Minutes Spent on Discharge: 35 Hospital Course: 88 year old female with below past medical history hospitalized for fall 2/2 syncope, complicated by pelvis fracture, admitted to TCU with debility, here for rehabilitation, strengthening, prior to discharge home alone. Discharge to sister's house 08/25/2024, [facility] PT/OT/ST/SN/SW. Physical Exam Const alert General Appearance: cooperative HEENT normocephalic Eyes PERRL and EOMs intact bilaterally Neck supple, no JVD and no carotid bruits Resp normal respiratory effort, normal air movement and clear to auscultation bilaterally Cardio regular rate and regular rhythm GI normal to inspection, nondistended, normoactive bowel sounds, non-tender and non-distended Extremity normal capillary refill General Extremity: Negative for edema Skin no rashes or lesions noted General Skin Exam: no breakdown Psych affect normal Appearance: appropriate Weight / BMI Weight Weight: 48.761 kg Body Mass Index (BMI) 21.7 ABG / Lab / Microbiology Data 08/19/24 05:40 08/18/24 05:28 Laboratory: Laboratory Results - last 24 hr 08/22/24 05:48: POC Glucose 96 Microbiology: Microbiology 08/12/24 11:45 Urine, Catheterized Urine Culture - Final Culture exhibits no growth. 08/12/24 13:40 Mucosa - Nasopharyngeal Respiratory Panel (PCR) - Final 08/12/24 13:40 Nasal Secretion SARS-CoV-2 Antigen (Rapid) - Final 08/08/24 22:54 Urine, Catheterized Urine Culture - Final Culture exhibits no growth. D/C Instructions Discharge Diet: No restrictions Discharge Activity: Return to Normal Activity, May Shower and Use Walker Weight Bearing Status: Weight bearing as tolerated Call your doctor if you observe: Fever of 101 or Higher, Inability to urinate, Inability to have a bowel movement, Shortness of breath, Dizziness, Fainting spells, Swelling in the ankles, Chest pain and Uncontrolled pain DC O2, CPAP, BIPAP Needs Home O2 Discharge instructions: No Additional Instructions: Discharge to [facility] 08/25/2024, [facility] PT/OT/ST/SN/SW. Please Follow Up With: Cata Lux MD When: 1 week. Meaningful Use Info Meaningful Use Meaningful Use Diagnoses (Choose all that apply): None applicable Ischemic Stroke Statin Dosing Therapy Reference: STATIN DOSE THERAPY REFERENCE: * Patients > 75 years receive moderate or high dose statin therapy. * Patients 75 years or YOUNGER should receive HIGH intensity statin dose unless contraindicated. You will be required to document reason for non-treatment if statin daily dose does not meet guidelines. HIGH DOSE STATIN THERAPY DAILY Atorvastatin > than or = to 40 mg Rosuvastatin > than or = to 20 mg Amlodipine + Atorvastatin > than or = to 2.5/40 mg Ezetimibe + Simvastatin 10/80 mg Simvastatin 80mg Discharge Plan Admission Admit Date/Time: 08/04/24 15:10 Primary Reason for Your Visit: Debility. Attending Provider: Ruperto Damon Chi Primary Care Provider: Care Physician,No Primary Instructions Additional Instructions / Restrictions: Discharge to [facility] 08/25/2024, [facility] PT/OT/ST/SN/SW. Discharge Orders/Prescriptions Prescriptions: New citalopram 10 mg Tablet 10 mg PO DAILY 30 Days Qty: 30 0RF acetaminophen 500 mg Tablet 1,000 mg PO Q8 Qty: 0 0RF metoprolol tartrate 25 mg Tablet 12.5 mg PO BID 30 Days Qty: 30 0RF Continued atorvastatin 40 mg tablet 40 mg PO DAILY ezetimibe 10 mg tablet 10 mg PO DAILY metformin 500 mg tablet 500 mg PO DAILY calcium carbonate-vitamin D3 500 mg-5 mcg (200 unit) tablet 1 tab PO DAILY aspirin 81 mg capsule 81 mg PO DAILY Discontinued amlodipine 10 mg tablet 10 mg PO DAILY metoprolol tartrate 25 mg tablet 25 mg PO BID baclofen 5 mg tablet 5 mg PO TID oxycodone 5 mg tablet 2.5 mg PO Q4H PRN Referrals / Follow Up: [facility] [Outside] - 08/30/24 4:00 pm (Arrive at 3:45pm with photo ID, insurance cards and medication list ) Care Physician,No Primary [Primary Care Provider] - Disposition Disposition (needs filled in before D/C Order can be placed): Home Health Service
[2024-08-22 20:37] VITALS: BP 124/65; PULSE 63
[2024-08-22] MEDS: Atorvastatin Calcium 40 MG Tablet PO (20:38)
[2024-08-22 20:47] VITALS: BP 124/65; PULSE 63
[2024-08-23] MEDS: Acetaminophen 500 MG Tablet 1000 MG PO ×3 (04:45→22:11)
[2024-08-23] MEDS: Enoxaparin 30 MG/0.3 ML Syringe SC (04:46)
[2024-08-23 06:19] LABS: Bedside Glucose 98 mg/dL (74-106)
[2024-08-23] MEDS: Citalopram 10 MG Tablet PO (08:44)
[2024-08-23] MEDS: Calcium Carb/Vitamin D 1 TABLET Tablet PO (08:44)
[2024-08-23] MEDS: Aspirin 81 MG TAB.CHEW PO (08:44)
[2024-08-23] MEDS: metFORMIN HCl 500 MG Tablet PO (08:44)
[2024-08-23] MEDS: Senna/Docusate Sodium 1 Tablet PO (08:44)
[2024-08-23 08:47] VITALS: BP 94/60; PULSE 65
--- NOTE | 2024-08-23 10:13 | CASEMGMT ---
Addendum entered by Geraldine Ball 08/23/24 16:04: None of the [facility] agencies below can accept. SW referred to the rest of the agencies on the [facility] list. [facility] is the only accepting agency. DC orders sent. Addendum entered by Shellie Elizondo 08/23/24 15:06: Social Work TOM placed call to pt sister Ruth to obtain home health choices. Ruth agreeable to referrals to [facility], [facility], [facility] and [facility] home care. Referrals sent. [facility] is unable to accept. Will await determination from other agencies. LAYO Younger Original Note: Social Work All referred home health companies unable to accept pt. Phone call placed to pt sister and informed. SW requested additional choices. Pt sister states she will need to review list and will call this worker back with additional choices. Sister inquiring if home health care really was needed. TOM informed sister that the choice was pt and sisters, but team is recommending home health followup for safe return home. TOM will await return call from . LAYO Younger
[2024-08-23] MEDS: Menthol/Lanolin/Calamine/Znox 113 GM Tube 1 APPLIC TOPICAL ×2 (10:52→22:14)
[2024-08-23] MEDS: Silver Sulfadiazine 1% Crm 50 gm Bottle 1 APPLIC TOPICAL ×2 (10:52→22:16)
[2024-08-23 14:48] VITALS: BP 122/54; PULSE 71; RESP 18; TEMP 36.4; O2SAT 98
--- NOTE | 2024-08-23 14:51 | CASEMGMT ---
BIMS (06/09) and PHQ2(0) interviews completed on this date for MDS assessment. LAYO Younger
[2024-08-23 22:10] VITALS: BP 140/59; PULSE 66; O2SAT 96
[2024-08-23 22:11] VITALS: BP 140/59; PULSE 66
[2024-08-23] MEDS: Atorvastatin Calcium 40 MG Tablet PO (22:11)
[2024-08-23] MEDS: Metoprolol Tartrate 25 MG Tablet 12.5 MG PO (22:11)
--- NOTE | 2024-08-23 22:30 | NURSING ---
Dressing to right thigh burn changed, old dressing had a 50 cent piece sized amount of yellow drainage. Cleansed with NS, silvadene and adaptic over wound, covered with ABD, secured with kerlix and ABIDA wrap. Patient denies pain with dressing change. Date, time, and initials present on dressing.
[2024-08-24] MEDS: Enoxaparin 30 MG/0.3 ML Syringe SC (05:37)
[2024-08-24] MEDS: Acetaminophen 500 MG Tablet 1000 MG PO ×3 (05:37→21:07)
[2024-08-24 06:32] LABS: Bedside Glucose 114 mg/dL (74-106)
[2024-08-24 10:08] VITALS: BP 105/55; PULSE 62; RESP 18; TEMP 35.9; O2SAT 97
[2024-08-24] MEDS: Metoprolol Tartrate 25 MG Tablet 12.5 MG PO (10:08)
[2024-08-24] MEDS: Senna/Docusate Sodium 1 Tablet PO (10:08)
[2024-08-24] MEDS: Citalopram 10 MG Tablet PO (10:08)
[2024-08-24] MEDS: Aspirin 81 MG TAB.CHEW PO (10:09)
[2024-08-24] MEDS: Calcium Carb/Vitamin D 1 TABLET Tablet PO (10:09)
[2024-08-24] MEDS: metFORMIN HCl 500 MG Tablet PO (10:09)
[2024-08-24] MEDS: Menthol/Lanolin/Calamine/Znox 113 GM Tube 1 APPLIC TOPICAL ×2 (10:12→21:21)
[2024-08-24] MEDS: Silver Sulfadiazine 1% Crm 50 gm Bottle 1 APPLIC TOPICAL ×2 (10:13→21:25)
--- NOTE | 2024-08-24 12:58 | NURSING ---
Dressing change completed per orders, pt tolerated well.
[2024-08-24] MEDS: Atorvastatin Calcium 40 MG Tablet PO (21:07)
[2024-08-24 21:23] VITALS: BP 136/41; PULSE 57
[2024-08-25 06:02] LABS: Absolute Lymphocyte Count 1.67 X10^3/uL (0.83-4.51); Absolute Neutrophil Count 2.4 X10^3/uL (2.0-7.7); Basophil# 0.05 X10^3/uL; Eosinophil# 0.28 X10^3/uL; Eosinophils% 5.7 % (0-5); Hematocrit 33.8 % (37-47); Hemoglobin 10.9 g/dL (12.0-15.0); Lymphocyte # 1.67 X10^3/ul (0.83-4.51); Lymphocyte % 33.9 % (19-41); Mean Corp Hgb Conc 32.2 g/dL (32-36); Mean Corpuscular Hgb 30.4 pg (27.0-32.0); Mean Corpuscular Volume 94.4 fL (81-99); Mean Platelet Vol. 10.5 fl (6.2-12.0); Monocyte# 0.54 X10^3/uL; NRBC Flagged by Analyzer 0 % (0-5); Neutrophil # 2.38 X10^3/uL (2.7-7.7); Neutrophil % 48.2 % (47-70); Platelet Count 229 K/mm3 (150-450); RBC Distribution Width CV 15.6 % (11.6-14.6); RBC Distribution Width SD 53.8 fl (35.1-43.9); Red Blood Count 3.58 M/mm3 (4.2-5.4); White Blood Count 4.9 K/mm3 (4.4-11.0)
[2024-08-25] MEDS: Enoxaparin 30 MG/0.3 ML Syringe SC (06:02)
[2024-08-25] MEDS: Acetaminophen 500 MG Tablet 1000 MG PO (06:02)
[2024-08-25 06:17] LABS: Bedside Glucose 101 mg/dL (74-106)
[2024-08-25 06:48] LABS: Anion Gap 4 (5-15); BUN 23 mg/dL (7-18); BUN/Creat Ratio 26.6 RATIO (10-20); Chloride 104 mmol/L (98-107); Creatinine, Serum 0.86 mg/dL (0.55-1.02); EST Glomerular Filtration Rate 66 mL/min (>60); Est Glom Filt Rate - Afr Amer 79 mL/min (>60); Estimated Creatinine Clearance 31.85 ml/min; Glucose 101 mg/dL (74-106); Potassium 4.8 mmol/L (3.5-5.1); Sodium Level 136 mmol/L (136-145)
[2024-08-25 08:23] VITALS: BP 116/64; PULSE 68; RESP 16; TEMP 35.8; O2SAT 99
[2024-08-25] MEDS: metFORMIN HCl 500 MG Tablet PO (08:25)
[2024-08-25] MEDS: Menthol/Lanolin/Calamine/Znox 113 GM Tube 1 APPLIC TOPICAL (08:25)
[2024-08-25] MEDS: Calcium Carb/Vitamin D 1 TABLET Tablet PO (08:25)
[2024-08-25] MEDS: Aspirin 81 MG TAB.CHEW PO (08:25)
[2024-08-25 08:26] VITALS: PULSE 68
[2024-08-25] MEDS: Metoprolol Tartrate 25 MG Tablet 12.5 MG PO (08:26)
[2024-08-25] MEDS: Citalopram 10 MG Tablet PO (08:26)
[2024-08-25] MEDS: Silver Sulfadiazine 1% Crm 50 gm Bottle 1 APPLIC TOPICAL (08:27)
--- NOTE | 2024-08-25 11:26 | NURSING ---
Discharge instructions given to patient's sister. Discussed wound care order. No further needs at this time. Instructed to call unit with any questions/concerns.
== END 2024-08-25 11:55 | disposition home health service (06) | DRG 561 ==
PROVIDERS: Admitting Provider Family Medicine Geriatric Medicine; Referring Provider Family Medicine Geriatric Medicine; Visit Provider Family Medicine Geriatric Medicine
DX: S32.9XXD Fracture of unspecified parts of lumbosacral spine and pelvis, subsequent encounter for fracture with routine healing (principal); E11.65 Type 2 diabetes mellitus with hyperglycemia; I10 Essential (primary) hypertension; I65.23 Occlusion and stenosis of bilateral carotid arteries; F32.A Depression, unspecified; Z95.3 Presence of xenogenic heart valve; I48.91 Unspecified atrial fibrillation; I25.10 Atherosclerotic heart disease of native coronary artery without angina pectoris; E55.9 Vitamin D deficiency, unspecified; E78.5 Hyperlipidemia, unspecified; M19.90 Unspecified osteoarthritis, unspecified site; M62.838 Other muscle spasm; W19.XXXD Unspecified fall, subsequent encounter; F41.9 Anxiety disorder, unspecified; T24.011A Burn of unspecified degree of right thigh, initial encounter; Z79.84 Long term (current) use of oral hypoglycemic drugs; Z79.899 Other long term (current) drug therapy; X10.0XXA Contact with hot drinks, initial encounter; Y92.129 Unspecified place in nursing home as the place of occurrence of the external cause
CPT/HCPCS: 36415; 71046; 74018; 80048; 80061; 81001; 82306; 82962; 83036; 85014; 85018; 85025; 87086; 87633; 87811; 92507; 92523; 97110; 97116; 97129; 97130; 97162; 97165; 97530; 97535; 97802; A4216